=== PATIENT | male | born 1975 | race Caucasian/White ===

== ENCOUNTER 2016-08-08 12:10 | Inpatient (IN) | payer MEDICARE, OTHER ==
[~2016-08-08] VITALS: Ht 190.5 cm; Wt 112.0 kg
[2016-08-08 13:33] LABS: BASO % 0.6 % (0.0-1.0); EOS # 0.1 K/mm3 (0.0-0.50); EOS % 1.5 % (0.0-3.0); LARGE UNSTAINED CELL # 0.2 K/mm3 (0.0-0.4); LARGE UNSTAINED CELL % 1.6 % (0.0-4.0); LYMPH # 2.1 K/mm3 (1.5-4.5); LYMPH % 22.1 % (24.0-44.0); MEAN CORPUSCULAR HEMOGLOBIN 28.5 pg (27.0-33.0); MEAN CORPUSCULAR HGB CONC 32.7 g/dl (32.0-36.5); MONO # 0.4 K/mm3 (0.0-0.8); MONO % 3.7 % (0.0-5.0); NEUTROPHILS # 6.6 K/mm3 (1.8-7.7); NEUTROPHILS % 70.5 % (36.0-66.0); PLATELET COUNT, AUTOMATED 347 k/mm3 (150-450); RED CELL DISTRIBUTION WIDTH 13.2 % (11.5-14.5); WHITE BLOOD COUNT 9.3 K/mm3 (4.0-10.0)
[2016-08-08 13:42] LABS: ANION GAP 8 MEQ/L (8-16); BLOOD UREA NITROGEN 12 MG/DL (7-18); CALCIUM LEVEL 9.1 MG/DL (8.5-10.1); CARBON DIOXIDE LEVEL 31 MEQ/L (21-32); CHLORIDE LEVEL 104 MEQ/L (98-107); CREATININE FOR GFR 0.82 MG/DL (0.70-1.30); GLOMERULAR FILTRATION RATE > 60.0 (>60); GLUCOSE, FASTING 84 MG/DL (70-105); POTASSIUM SERUM 3.7 MEQ/L (3.5-5.1); SODIUM LEVEL 143 MEQ/L (136-145)
--- NOTE | 2016-08-08 14:17 | REP ---
Left lower extremity deep vein duplex ultrasound: The deep veins demonstrate normal compression, normal Doppler color flow and normal Doppler waveforms with respiration and augmentation at multiple levels from the popliteal vein to the common femoral vein. Impression: There is no deep vein thrombus. A normal-sized left inguinal node is incidentally identified. Signed by Jan Serrato MD 08/08/2016 02:09 P
--- NOTE | 2016-08-08 14:22 | REP ---
Left upper extremity duplex venous ultrasound: History: Intravenous medication for Lyme disease PICC line inserted. Deformity and swelling. Findings: The left internal jugular, left subclavian, left brachial, left basilic, left axillary, and left cephalic veins are anechoic and compressible where they can be sonographically visualized. There is a bandage at the PICC line insertion in the distal arm. There is no evidence of venous thrombosis. Color flow imaging is homogeneous. Spectral Doppler interrogation is unremarkable. Impression: No evidence of left upper extremity venous thrombosis. The PICC line is seen in the basilic vein without visible thrombus. Signed by Ellis Fallon MD 08/08/2016 04:33 P
--- NOTE | 2016-08-08 14:28 | REP ---
Chest x-ray: Two views. History: Syncope. . Comparison study: No comparison study . Findings: The lungs are well inflated and free of infiltrate. The pleural angles are sharp. The heart size is normal. Pulmonary vasculature is not increased. No significant bony abnormality is seen. Impression: Negative chest x-ray. Signed by Ellis Fallon MD 08/08/2016 02:20 P
[2016-08-08] MEDS ORDERED: oxyCODONE 5MG TAB As Ordered ONE (14:35)
[2016-08-08] MEDS ORDERED: ISOVUE-370 76% 100ML VIAL (Q9967) As Ordered ONE (14:54)
--- NOTE | 2016-08-08 15:47 | REP ---
CT pulmonary angiogram: With IV contrast. History: Chest pain. Comparison studies: Today's chest x-ray. Contrast dose: 75 cc's of Isovue [address] technique: Helical scanning is acquired and overlapping 1.5 mm and contiguous 3 mm axial images are reformatted. In addition, a 3-D work station is deployed to generate thick slab maximum intensity projection images in sagittal and coronal imaging projections. CT pulmonary angiographic findings: There is good opacification of the pulmonary arterial tree. There is a thin weblike or membrane like filling defect in the right lower lobe pulmonary artery branch which extends into the segmental pulmonary artery branch posterior basal segment. This weblike defect is slightly eccentric. It may be subacute or old. It cannot be visualized on the maximal intensity projection images probably due to volume averaging. The thoracic aorta has a normal appearance. There is no evidence of pleural or pericardial effusion. No mass or infiltrate is seen in the lung belle. A left-sided PICC line is seen looping back upon itself and terminating in the left subclavian vein. This is a change in its position from when it was inserted April 11, 2016. Surgical clips are noted in the upper abdomen post gastric bypass. The upper abdominal structures are otherwise unremarkable. No other pulmonary arterial filling defect is appreciated. Impression: There is a thin membrane like filling defect in the right lower lobe pulmonary artery consistent with a very small acute pulmonary embolus versus subacute or chronic pulmonary embolus. A left-sided PICC line is seen doubling back upon itself and terminating in the left subclavian vein. Signed by Ellis Fallon MD 08/08/2016 04:34 P
[2016-08-08 16:03] LABS: INR 1.05
[2016-08-08] MEDS ORDERED: VITMTA PO (16:40)
[2016-08-08] MEDS ORDERED: OXYC1TAB23 PO (16:40)
[2016-08-08] MEDS ORDERED: POTA10CA PO (16:40)
[2016-08-08] MEDS ORDERED: GABA300C3 PO (16:40)
[2016-08-08] MEDS ORDERED: IRON65TA PO (16:40)
[2016-08-08] MEDS ORDERED: FURO40TA2 PO (16:40)
[2016-08-08] MEDS ORDERED: OXYC15TA76 PO (16:40)
[2016-08-08] MEDS ORDERED: CLON1TAB PO (16:40)
[2016-08-08] MEDS ORDERED: VITA-121 PO (16:40)
[2016-08-08] MEDS ORDERED: ONDANSETRON 4MG/2ML VIAL (J2405) IV PRN (17:00)
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
[2016-08-08] MEDS ORDERED: ENOXAPARIN 120 MG/0.8 ML SYR (J1650) SC SCH (18:00)
--- NOTE | 2016-08-08 19:05 | EDDOCDS ---
Physician Documentation [facility] Name: Delbert Suárez Age: 40 yrs Sex: Male : 1975 Arrival Date: 08/08/2016 Time: 12:10 Bed 6 Private MD: NO PRIMARY PHYSICIAN, . Disposition: 08/08/16 16:01 Hospitalization ordered by Alfredo Arthur for Inpatient Admission. Preliminary diagnosis are Pulmonary embolism, Syncope and collapse. - Bed requested for PCU. - Status is Inpatient Admission. [id number] - Condition is Stable. - Problem is new. - Symptoms are unchanged. Historical: - Allergies: No known drug Allergies; - Home Meds: 1. gabapentin 300 mg Oral tab three times a day 2. clonazepam 1 mg Oral TbDL QID 3. oxycodone 15 mg Oral tab 1 tab every 6 hours 4. Percocet 5-325 mg Oral tab 1 tab every 6 hours 5. Lasix 40 mg Oral tab 1 tab once daily 6. potassium chloride 10 mEq Oral cpER 1 cap once daily - PMHx: Lyme Disease; Pseudo Seizures; Fluid retention; left achilles tendon tear; PE; DVT; - PSHx: PICC line x3; right hand; Gastric Bypass; esophageal resection; YOSEF knee scopes; - Social history: Smoking status: Patient states former smoker of tobacco. No barriers to communication noted, The patient speaks fluent Croatian, Speaks appropriately for age. - Family history: Not pertinent. - : The pt / caregiver states he / she is not on anticoagulants. Home medication list is obtained from the patient, family members. - Exposure Risk Screening:: None identified. Vital Signs: 08/08 12:13 BP 146 / 75; Pulse 102; Resp 20; Temp 98.6(TE); Pulse Ox 100% on R/A; Weight 109.68 kg dem1 / 241.8 lbs (M); 12:46 BP 109 / 60 RA Supine (auto/); Pulse 76; jo3 12:49 BP 121 / 71 RA Sitting (auto/); Pulse 94; jo3 12:51 BP 123 / 66 RA Standing (auto/); Pulse 107; jo3 14:29 BP 110 / 58 (auto/); jo3 14:29 Pulse 80 MON; jo3 14:33 BP 116 / 61 (auto/); jo3 14:33 Pulse 86 MON; Pulse Ox 98% ; jo3 15:03 BP 111 / 57 (auto/); jo3 15:03 Pulse 82 MON; jo3 15:33 BP 106 / 55 (auto/); jo3 15:33 Pulse 82 MON; Pulse Ox 95% ; jo3 16:03 BP 109 / 61 (auto/); jo3 16:03 Pulse 76 MON; Pulse Ox 94% ; jo3 16:30 Pulse 78 MON; Pulse Ox 96% ; jo3 16:33 BP 106 / 61 (auto/); jo3 16:33 Pulse 76 MON; Pulse Ox 97% ; jo3 16:45 Pulse 72 MON; Pulse Ox 97% ; jo3 17:00 Pulse 74 MON; Pulse Ox 97% ; jo3 17:03 BP 112 / 64 (auto/); jo3 17:03 Pulse 72 MON; Resp 16; Temp 98.2(TE); Pulse Ox 97% ; js13 17:15 Pulse 74 MON; Pulse Ox 95% ; jo3 17:30 Pulse 82 MON; Pulse Ox 95% ; jo3 17:45 Pulse 76 MON; Pulse Ox 96% ; jo3 18:00 Pulse 78 MON; Pulse Ox 95% ; jo3 18:15 Pulse 76 MON; Pulse Ox 96% ; jo3 18:42 BP 115 / 65 (auto/); js13 18:42 Pulse 76 MON; Resp 16; Temp 97.9(TE); Pulse Ox 96% ; js13 MDM: 12:22 ECG WITH READING ER PHYS+CARDIAG ordered. EDMS 12:41 Dealer Sales Manager/Pulse Ox/q 30 min VS ordered. br1 12:41 IV Saline Lock ordered. br1 12:41 Rhythm Strip to chart ordered. br1 12:41 Undress patient appropriately for examination ordered. br1 12:41 Orthostatic VS ordered. br1 12:42 Basic Metabolic Profile Ordered. EDMS 12:42 CBC with Diff Ordered. EDMS 12:42 Cardiac Injury Profile Ordered. EDMS 12:42 Troponin Ordered. EDMS 12:43 Chest, 2 View (pa\E\lat) Ordered. EDMS 13:14 Ultrasound LE Unilateral R/O DVT Ordered. EDMS 13:14 DVT US Upper Ordered. EDMS 13:23 Financial registration complete. lg 13:34 NS 0.9% 1000 ml IV at 150 mL/hr continuous ordered. br1 13:44 [facility] [place] Payment Agreement was scanned into [employer] and attached to record. lg 14:34 oxyCODONE 15 mg PO once ordered. br1 14:44 CBC with Diff Reviewed. br1 14:44 Basic Metabolic Profile Reviewed. br1 14:44 Cardiac Injury Profile Reviewed. br1 14:44 Troponin Reviewed. br1 14:48 CT Chest Angio R/O PE Ordered. EDMS 15:43 BED REQUEST+ADM ordered. EDMS 15:47 PT/INR Ordered. EDMS 15:47 PTT Ordered. EDMS 17:01 CARDIAC INJURY PROFILE Ordered. EDMS 17:01 TROPONIN Ordered. EDMS 17:02 PHYSICAL THERAPY EVAL & TREAT ordered. EDMS 17:03 Admission / Observation Status ordered. EDMS 17:03 ECHOCARD,DOPPLER/COLOR FLOW ordered. EDMS 17:03 2 GRAM SODIUM DIET ordered. EDMS Administered Medications: 14:20 Drug: NS 0.9% 1000 ml [sodium chloride 0.9 % intravenous solution] Route: IV; Rate: 150 jo3 mL/hr; Site: right antecubital; 18:53 Follow up: IV Status: Completed infusion jo3 14:38 Drug: oxyCODONE 15 mg [oxycodone 5 mg tablet (3 tabs)] Route: PO; jo3 Signatures: Dispatcher [employer] EDMyra Almendarez, Reg Reg lg Ashtyn Vang,DOV RN jo3 Osmar Lr MD MD br1 Ashtyn Briscoe,DOV RN js13 Adriana Alvarado, RN RN sls2 The chart was reviewed and I authenticate all verbal orders and agree with the evaluation and treatment provided.Attachments: 13:44 [facility] [place] Payment Agreement lg [email or web address]
--- NOTE | 2016-08-08 19:05 | EDDOCDS ---
Nurse's Notes [facility] Name: Delbert Suárez Age: 40 yrs Sex: Male : 1975 Arrival Date: 08/08/2016 Time: 12:10 Bed 6 Private MD: NO PRIMARY PHYSICIAN, . Diagnosis: Pulmonary embolism;Syncope and collapse Presentation: 08/08 12:15 Red Flag criteria, patient assessed and taken directly to a bed. dsf 12:21 Presenting complaint: states: Pt has had ongoing difficulties r/t Lyme disease. jo3 Has a PICC line placed for Rocephin infusions. Completed Rocephin treatments Friday. Been unable to get ahold of Dr Reason to plan to have PICC removed. Has had nothing through PICC line since Friday and left hand is hurting and has numb feeling. Has history of blood clots. En route to hospital, pt had several syncopal episodes and complained of a "flutter" in chest. Adult Sepsis Screening: Patient has new or worsening altered mentation (1 point). Patient's respiratory rate is less than 22. Systolic blood pressure is greater than 100. Patient has a qSOFA score of 0- Negative Sepsis Screen. Suicide/Homicide risk assessment- the patient denies having any suicidal and/or homicidal ideations and does not present with any other emotional, behavioral or mental health complaints. Status: Patient is not a environmental services supervisor or dependent. Transition of care: patient was not received from another setting of care. 12:21 Acuity: LUISITO Level 3 jo3 12:21 Method Of Arrival: Walkin/Carried/Asstd jo3 Triage Assessment: 12:42 General: Appears. General: See nursing assessment . HIV screening NA for this visit jo3 Offered previously. Neurological:. Historical: - Allergies: No known drug Allergies; - Home Meds: 1. gabapentin 300 mg Oral tab three times a day 2. clonazepam 1 mg Oral TbDL QID 3. oxycodone 15 mg Oral tab 1 tab every 6 hours 4. Percocet 5-325 mg Oral tab 1 tab every 6 hours 5. Lasix 40 mg Oral tab 1 tab once daily 6. potassium chloride 10 mEq Oral cpER 1 cap once daily - PMHx: Lyme Disease; Pseudo Seizures; Fluid retention; left achilles tendon tear; PE; DVT; - PSHx: PICC line x3; right hand; Gastric Bypass; esophageal resection; YOSEF knee scopes; - Social history: Smoking status: Patient states former smoker of tobacco. No barriers to communication noted, The patient speaks fluent Slovenian, Speaks appropriately for age. - Family history: Not pertinent. - : The pt / caregiver states he / she is not on anticoagulants. Home medication list is obtained from the patient, family members. - Exposure Risk Screening:: None identified. Screenin:44 Screening information is obtained from the patient, family members. Screening jo3 information is obtained from. Fall risk: At risk due to apparent cognitive impairment. Assistance ADL's: requires no assistance with activities of daily living. Abuse/DV Screen: The patient / caregiver reports he/she is:. Nutritional screening: No deficits noted. Advance Directives: There is no active DNR order. home support is adequate. Assessment: 12:42 General: Appears. General: Appears in no apparent distress, comfortable, unkempt, jo3 Behavior is cooperative. General: Appears well nourished, Behavior is. Neurological: Level of Consciousness is awake, alert, Oriented to person, place, time. Cardiovascular: PICC line to left upper extremity . Rhythm is sinus rhythm No ectopy. Respiratory: Airway is patent Respiratory effort is even, unlabored. Derm: Skin is pink, warm & dry. 13:08 General: Appears in no apparent distress, comfortable, unkempt, well nourished, jo3 Behavior is appropriate for age, cooperative. Neurological: Level of Consciousness is awake, alert, Oriented to person, place, time, Proofer Prepress are equal bilaterally. Respiratory: Airway is patent Respiratory effort is even, unlabored. Derm: Skin is pink, warm & dry. Musculoskeletal: Left foot in immobilizer boot to mid calf. 14:38 General: Appears uncomfortable, Behavior is appropriate for age, cooperative, pleasant. jo3 General: Pt reports it is past time for home dose of pain medication. Discussed with Dr Lr and orders received. Will monitor for effectiveness . Neurological: Level of Consciousness is awake, alert, Oriented to person, place, time. 15:32 Reassessment: Patient appears in no apparent distress at this time. Patient states jo3 feeling better. Patient states symptoms have improved. Pt reports that pain is improved following home dose of Oxycodone. returned from CT scan. Tolerated well. Awaiting results for disposition at this time. Aware of plan of care . 16:35 General: Appears in no apparent distress, Behavior is appropriate for age, cooperative, jo3 pleasant. General: Awaiting admission at this time. Aware of plan of care . Neurological: No deficits noted. Level of Consciousness is awake, alert, Oriented to person, place, time. Respiratory: Airway is patent Respiratory effort is even, unlabored. Derm: Skin is pink, warm & dry. 17:40 Reassessment: Patient appears in no apparent distress at this time. Resting on jo3 stretcher with significant other at bedside. Awaiting admission to PCU at this time. Aware of plan of care . Neurological: No deficits noted. Level of Consciousness is awake, alert, Oriented to person, place, time. Respiratory: No deficits noted. Airway is patent Respiratory effort is even, unlabored. 18:39 General: Appears in no apparent distress, comfortable, Behavior is appropriate for age, jo3 cooperative, pleasant. Neurological: Level of Consciousness is awake, alert, Oriented to person, place, time. Respiratory: Airway is patent Respiratory effort is even, unlabored. Derm: Skin is pink, warm & dry. Vital Signs: 12:13 BP 146 / 75; Pulse 102; Resp 20; Temp 98.6(TE); Pulse Ox 100% on R/A; Weight 109.68 kg dem1 (M); 12:46 BP 109 / 60 RA Supine (auto/); Pulse 76; jo3 12:49 BP 121 / 71 RA Sitting (auto/); Pulse 94; jo3 12:51 BP 123 / 66 RA Standing (auto/); Pulse 107; jo3 14:29 BP 110 / 58 (auto/); jo3 14:29 Pulse 80 MON; jo3 14:33 BP 116 / 61 (auto/); jo3 14:33 Pulse 86 MON; Pulse Ox 98% ; jo3 15:03 BP 111 / 57 (auto/); jo3 15:03 Pulse 82 MON; jo3 15:33 BP 106 / 55 (auto/); jo3 15:33 Pulse 82 MON; Pulse Ox 95% ; jo3 16:03 BP 109 / 61 (auto/); jo3 16:03 Pulse 76 MON; Pulse Ox 94% ; jo3 16:30 Pulse 78 MON; Pulse Ox 96% ; jo3 16:33 BP 106 / 61 (auto/); jo3 16:33 Pulse 76 MON; Pulse Ox 97% ; jo3 16:45 Pulse 72 MON; Pulse Ox 97% ; jo3 17:00 Pulse 74 MON; Pulse Ox 97% ; jo3 17:03 BP 112 / 64 (auto/); jo3 17:03 Pulse 72 MON; Resp 16; Temp 98.2(TE); Pulse Ox 97% ; js13 17:15 Pulse 74 MON; Pulse Ox 95% ; jo3 17:30 Pulse 82 MON; Pulse Ox 95% ; jo3 17:45 Pulse 76 MON; Pulse Ox 96% ; jo3 18:00 Pulse 78 MON; Pulse Ox 95% ; jo3 18:15 Pulse 76 MON; Pulse Ox 96% ; jo3 18:42 BP 115 / 65 (auto/); js13 18:42 Pulse 76 MON; Resp 16; Temp 97.9(TE); Pulse Ox 96% ; js13 Vitals: 12:13 Log In Time: August 08, 2016 at 12:11. elp 12:13 RN notified that patient meets Red Flag criteria. elp ED Course: 12:12 Patient visited by Liliane Lopez PCA. elp 12:12 NO PRIMARY PHYSICIAN, . is Private Physician. elp 12:12 Patient moved to Waiting elp 12:13 Patient visited by Liliane Lopez PCA. elp 12:15 Patient moved to 6 elp 12:26 EKG done. (by ED staff). Reviewed by Osmar Lr MD. dem1 12:27 Triage Initiated jo3 12:28 Patient visited by Jessica Whitley. dem1 12:28 Pt greeted and oriented to ED. Patient advised of names of staff involved in care, dem1 location of call loredo, wait times and NPO status. Patient has correct armband on for positive identification. Placed in gown. Bed in low position. Call light in reach. Side rails up X2. monitoring manager on. Pulse ox on. NIBP on. 12:31 Patient visited by Jessica Whitley. dem1 12:31 Seizure precautions initiated. dem1 12:33 Patient visited by Ashtyn Vang,DOV. jo3 12:44 The patient / caregiver is instructed regarding the plan of care and ED course. jo3 12:59 Osmar Lr MD is Attending Physician. br1 13:08 Basic Metabolic Profile Sent. jo3 13:08 CBC with Diff Sent. jo3 13:08 Cardiac Injury Profile Sent. jo3 13:08 Troponin Sent. jo3 13:10 Flushed left PICC line. jo3 13:12 Patient visited by Osmar Lr MD. br1 13:14 Patient visited by Ashtyn Vang,DOV. jo3 13:44 [facility] Payment Agreement was scanned into [employer] and attached to record. lg 14:18 Patient visited by Angelita Preciado PCA. ct3 14:55 Ultrasound LE Unilateral R/O DVT Returned. EDMS 14:55 DVT US Upper Returned. EDMS 14:55 Chest, 2 View (pa\\E\\lat) Returned. EDMS 15:35 Patient visited by Angelita Preciado PCA. ct3 15:38 Patient visited by Ashtyn Vang,DOV. jo3 16:01 Alfredo Arthur is Hospitalizing Provider. br1 16:36 CT Chest Angio R/O PE Returned. EDMS 17:15 Patient visited by Ashtyn Vang,DOV. jo3 18:17 No procedures done that require assistance. jo3 18:18 Patient visited by Ashtyn Vang,ODV. jo3 Administered Medications: 14:20 Drug: NS 0.9% 1000 ml [sodium chloride 0.9 % intravenous solution] Route: IV; Rate: 150 jo3 mL/hr; Site: right antecubital; 18:53 Follow up: IV Status: Completed infusion jo3 14:38 Drug: oxyCODONE 15 mg [oxycodone 5 mg tablet (3 tabs)] Route: PO; jo3 Order Results: Lab Order: Basic Metabolic Profile; SPEC'M 08/08/16 13:06 Test: GLUCOSE, FASTING; Value: 84; Range: 70-105; Units: MG/DL; Status: F Test: BLOOD UREA NITROGEN; Value: 12; Range: 7-18; Units: MG/DL; Status: F Test: CREATININE FOR GFR; Value: 0.82; Range: 0.70-1.30; Units: MG/DL; Status: F Test: GLOMERULAR FILTRATION RATE; Value: > 60.0; Range: >60; Status: F Test: SODIUM LEVEL; Value: 143; Range: 136-145; Units: MEQ/L; Status: F Test: POTASSIUM SERUM; Value: 3.7; Range: 3.5-5.1; Units: MEQ/L; Status: F Test: CHLORIDE LEVEL; Value: 104; Range: 98-107; Units: MEQ/L; Status: F Test: CARBON DIOXIDE LEVEL; Value: 31; Range: 21-32; Units: MEQ/L; Status: F Test: ANION GAP; Value: 8; Range: 8-16; Units: MEQ/L; Status: F Test: CALCIUM LEVEL; Value: 9.1; Range: 8.5-10.1; Units: MG/DL; Status: F Test Note: ; Units are mL/min/1.73 m2 Chronic Kidney Disease Staging per NKF: Stage I & II GFR >=60 Normal to Mildly Decreased Stage III GFR 30-59 Moderately Decreased Stage IV GFR 15-29 Severely Decreased Stage V GFR <15 Very Little GFR Left ESRD GFR <15 on [employer] Lab Order: CBC with Diff; SPEC'M 08/08/16 13:06 Test: WHITE BLOOD COUNT; Value: 9.3; Range: 4.0-10.0; Units: K/mm3; Status: F Test: RED BLOOD COUNT; Value: 5.11; Range: 4.30-6.10; Units: M/mm3; Status: F Test: HEMOGLOBIN; Value: 14.5; Range: 14.0-18.0; Units: g/dl; Status: F Test: HEMATOCRIT; Value: 44.4; Range: 42.0-52.0; Units: %; Status: F Test: MEAN CORPUSCULAR VOLUME; Value: 87.0; Range: 80.0-96.0; Units: fl; Status: F Test: MEAN CORPUSCULAR HEMOGLOBIN; Value: 28.5; Range: 27.0-33.0; Units: pg; Status: F Test: MEAN CORPUSCULAR HGB CONC; Value: 32.7; Range: 32.0-36.5; Units: g/dl; Status: F Test: RED CELL DISTRIBUTION WIDTH; Value: 13.2; Range: 11.5-14.5; Units: %; Status: F Test: PLATELET COUNT, AUTOMATED; Value: 347; Range: 150-450; Units: k/mm3; Status: F Test: NEUTROPHILS %; Value: 70.5; Range: 36.0-66.0; Abnormal: Above high normal; Units: %; Status: F Test: LYMPH %; Value: 22.1; Range: 24.0-44.0; Abnormal: Below low normal; Units: %; Status: F Test: MONO %; Value: 3.7; Range: 0.0-5.0; Units: %; Status: F Test: EOS %; Value: 1.5; Range: 0.0-3.0; Units: %; Status: F Test: BASO %; Value: 0.6; Range: 0.0-1.0; Units: %; Status: F Test: LARGE UNSTAINED CELL %; Value: 1.6; Range: 0.0-4.0; Units: %; Status: F Test: NEUTROPHILS #; Value: 6.6; Range: 1.8-7.7; Units: K/mm3; Status: F Test: LYMPH #; Value: 2.1; Range: 1.5-4.5; Units: K/mm3; Status: F Test: MONO #; Value: 0.4; Range: 0.0-0.8; Units: K/mm3; Status: F Test: EOS #; Value: 0.1; Range: 0.0-0.50; Units: K/mm3; Status: F Test: BASO #; Value: 0.0; Range: 0.0-0.2; Units: K/mm3; Status: F Test: LARGE UNSTAINED CELL #; Value: 0.2; Range: 0.0-0.4; Units: K/mm3; Status: F Lab Order: Cardiac Injury Profile; SPEC'M 08/08/16 13:06 Test: CPK CREATINE PHOSPHOKINASE; Value: 79; Range: 39-308; Units: U/L; Status: F Test: CK-MB VALUE MASS; Value: 1.0; Range: 0.0-3.6; Units: NG/ML; Status: F Test: MB/CK RELATIVE INDEX; Value: 1.26; Range: < OR =4; Status: F Test Note: ; DIAGNOSIS CRITERIA MMB ng/ml Relative Index (RI) NON-AMI < or = 5 N/A LOUIE ZONE > 5 < or = 4 AMI > 5 > 4 Lab Order: Troponin; [facility] 08/08/16 13:06 Test: TROPONIN I; Value: < 0.02; Range: < 0.10; Units: NG/ML; Status: F Test Note: ; Troponin I Reference Interval for [email or web address] LOCI: 99th Percentile= 0.00-0.045 ng/ml Risk Stratification: <= 0.10 ng/ml Decreased Risk for Adverse Clinical Events. 0.10-1.50 ng/ml Increased Risk for Adverse Clinical Events. Evaluation of additional criterion and/or repeat testing in 2-6 hours is suggested to rule out myocardial damage. >= 1.50 ng/ml Indicative of Myocardial Injury. Lab Order: PT/INR; [facility] 08/08/16 13:06 Test: PROTHROMBIN TIME; Value: 13.8; Range: 12.3-14.5; Units: SECONDS; Status: F Test: INR; Value: 1.05; Status: F Test Note: ; THERAPUTIC HUMAN INR VALUES INDICATIONS NORMAL RANGES PROPHYLAXIS/TREATMENT OF: VENOUS THROMBOSIS 2.0-3.0 PULMONARY EMBOLISM 2.0-3.0 PREVENTION OF SYSTEMIC EMBOLISM FROM: TISSUE HEART VALVES 2.0-3.0 ACUTE MYOCARDIAL INFARCTION 2.0-3.0 VALVULAR HEART DISEASE 2.0-3.0 ATRIAL FIBRILLATION 2.0-3.0 MECHANICAL VALVES(HIGH RISK) 2.5-3.5 RECURRENT MYOCARDIAL INFARCTION 2.5-3.5 Lab Order: PTT; [facility] 08/08/16 13:06 Test: PARTIAL THROMBOPLASTIN TIME; Value: 30.1; Range: 26.6-37.1; Units: SECONDS; Status: F Lab Order: CARDIAC INJURY PROFILE; [facility] 08/08/16 17:20 Test: CPK CREATINE PHOSPHOKINASE; Value: 65; Range: 39-308; Units: U/L; Status: F Test: CK-MB VALUE MASS; Value: 1.1; Range: 0.0-3.6; Units: NG/ML; Status: F Test: MB/CK RELATIVE INDEX; Value: 1.69; Range: < OR =4; Status: F Test Note: ; DIAGNOSIS CRITERIA MMB ng/ml Relative Index (RI) NON-AMI < or = 5 N/A LOUIE ZONE > 5 < or = 4 AMI > 5 > 4 Lab Order: TROPONIN; JERRY[facility]Mayuri 08/08/16 17:20 Test: TROPONIN I; Value: < 0.02; Range: < 0.10; Units: NG/ML; Status: F Test Note: ; Troponin I Reference Interval for [employer] LOCI: 99th Percentile= 0.00-0.045 ng/ml Risk Stratification: <= 0.10 ng/ml Decreased Risk for Adverse Clinical Events. 0.10-1.50 ng/ml Increased Risk for Adverse Clinical Events. Evaluation of additional criterion and/or repeat testing in 2-6 hours is suggested to rule out myocardial damage. >= 1.50 ng/ml Indicative of Myocardial Injury. Radiology Order: Chest, 2 View (pa\\E\\lat) Test: Chest, 2 View (pa\\E\\lat) REASON FOR EXAMINATION: Syncope; Chest x-ray: Two views.; ; History: Syncope. .; ; Comparison study: No comparison study .; ; Findings: The lungs are well inflated and free of infiltrate. The pleural; angles are sharp. The heart size is normal. Pulmonary vasculature is not; increased. No significant bony abnormality is seen.; ; Impression:; ; Negative chest x-ray.; ; ; Signed by; Ellis Fallon MD 08/08/2016 02:20 P; Radiology Order: Ultrasound LE Unilateral R/O DVT Test: Ultrasound LE Unilateral R/O DVT REASON FOR EXAMINATION: Deformity/Swelling; Left lower extremity deep vein duplex ultrasound:; ; The deep veins demonstrate normal compression, normal Doppler color flow and; normal Doppler waveforms with respiration and augmentation at multiple levels; from the popliteal vein to the common femoral vein.; ; Impression:; ; There is no deep vein thrombus.; ; A normal-sized left inguinal node is incidentally identified.; ; ; Signed by; Jan Serrato MD 08/08/2016 02:09 P; Radiology Order: DVT US Upper Test: DVT US Upper REASON FOR EXAMINATION: Deformity/Swelling; Left upper extremity duplex venous ultrasound:; ; History: Intravenous medication for Lyme disease PICC line inserted. Deformity; and swelling.; ; Findings: The left internal jugular, left subclavian, left brachial, left; basilic, left axillary, and left cephalic veins are anechoic and compressible; where they can be sonographically visualized. There is a bandage at the PICC; line insertion in the distal arm. There is no evidence of venous thrombosis.; Color flow imaging is homogeneous. Spectral Doppler interrogation is; unremarkable.; ; Impression:; ; No evidence of left upper extremity venous thrombosis. The PICC line is seen in; the basilic vein without visible thrombus.; ; ; Signed by; Ellis Fallon MD 08/08/2016 04:33 P; Radiology Order: CT Chest Angio R/O PE Test: CT Chest Angio R/O PE REASON FOR EXAMINATION: Chest Pain; CT pulmonary angiogram: With IV contrast.; ; History: Chest pain.; ; Comparison studies: Today's chest x-ray.; ; Contrast dose: 75 cc's of Isovue 370 are administered intravenously.; ; CT technique: Helical scanning is acquired and overlapping 1.5 mm and contiguous; 3 mm axial images are reformatted. In addition, a 3-D work station is deployed; to generate thick slab maximum intensity projection images in sagittal and; coronal imaging projections.; ; CT pulmonary angiographic findings: There is good opacification of the pulmonary; arterial tree. There is a thin weblike or membrane like filling defect in the; right lower lobe pulmonary artery branch which extends into the segmental; pulmonary artery branch posterior basal segment. This weblike defect is slightly; eccentric. It may be subacute or old. It cannot be visualized on the maximal; intensity projection images probably due to volume averaging.; ; The thoracic aorta has a normal appearance.; ; There is no evidence of pleural or pericardial effusion. No mass or infiltrate; is seen in the lung belle. A left-sided PICC line is seen looping back upon; itself and terminating in the left subclavian vein. This is a change in its; position from when it was inserted April 11, 2016. Surgical clips are noted in; the upper abdomen post gastric bypass. The upper abdominal structures are; otherwise unremarkable. No other pulmonary arterial filling defect is; appreciated.; ; Impression:; ; There is a thin membrane like filling defect in the right lower lobe pulmonary; artery consistent with a very small acute pulmonary embolus versus subacute or; chronic pulmonary embolus. A left-sided PICC line is seen doubling back upon; itself and terminating in the left subclavian vein.; ; ; Signed by; Ellis Fallon MD 08/08/2016 04:34 P; Outcome: 16:01 Decision to Hospitalize by Provider. br1 18:39 Discharge Assessment: Patient awake, alert and oriented x 3. No cognitive and/or jo3 functional deficits noted. Patient verbalized understanding of disposition instructions. patient administered narcotics - yes. Patient was admitted to the hospital or transferred to another facility. The following High Risk Discharge criteria are identified: None. Admitted to PCU accompanied by nurse, accompanied by tech, family with patient, via stretcher, on monitor, with chart. Condition: stable. CT Study completed. Ultrasound Study completed. Admission hand-off: Report Faxed Fax receipt verified by Tracy Rodriguez RN. Stated ready to receive pt at 1850. Property :Personal belongings accompany Pt. 19:05 Patient left the ED. js13 Signatures: Dispatcher [employer] EDMyra Almendarez, Reg Reg Ashtyn Pollard,RN RN jo3 Osmar Lr MD MD br1 Angelita Preciado, MACHINE STEMMER MACHINE STEMMER ct3 Tanvi Ignacio,RN RN Jessica Virgen dem1 Ashtyn Briscoe,RN RN js13 Liliane Lopez, MACHINE STEMMER MACHINE STEMMER elp Corrections: (The following items were deleted from the chart) 12:27 12:13 BP 146 / 75; Pulse 102bpm; Resp 20bpm; Pulse Ox 100% RA; elp dem1 12:44 12:42 Cardiovascular: Rhythm is sinus rhythm No ectopy. jo3 jo3 19:04 17:03 Pulse 72bpm; MonitorResp 16bpm; Pulse Ox 97%; Temp 68.2F Temporal; jo3 js13 MTDD
[2016-08-08 19:10] VITALS: BP 127/60
[2016-08-08] MEDS ORDERED: SLF 3 ML SYR IV PRN (20:00)
[2016-08-08] MEDS: PERCOCET 5MG/325MG TAB PO PRN (20:05)
[2016-08-08 20:28] VITALS: BP 114/55
[2016-08-08] MEDS: ENOXAPARIN 120 MG/0.8 ML SYR (J1650) SC SCH (21:55)
[2016-08-08] MEDS: GABAPENTIN 300 MG CAP PO SCH (21:56)
[2016-08-08] MEDS: SLF 3 ML SYR IV SCH (21:56)
[2016-08-08] MEDS: clonazePAM 1 MG TAB PO SCH (21:56)
[2016-08-08 23:58] VITALS: BP 103/51
[2016-08-09] MEDS: SLF 3 ML SYR IV SCH ×3 (06:00→20:38)
[2016-08-09 06:06] LABS: INR 1.12
[2016-08-09 06:10] VITALS: BP 100/63
[2016-08-09] MEDS: oxyCODONE 5MG TAB PO SCH ×4 (06:14→17:48)
[2016-08-09 06:19] LABS: ALBUMIN 3.2 GM/DL (3.2-5.2); ALKALINE PHOSPHATASE 57 U/L (45-117); ALT/SGPT 34 U/L (12-78); ANION GAP 9 MEQ/L (8-16); AST/SGOT 24 U/L (15-37); BILIRUBIN,TOTAL 0.4 MG/DL (0.2-1.0); BLOOD UREA NITROGEN 11 MG/DL (7-18); CALCIUM LEVEL 8.7 MG/DL (8.5-10.1); CARBON DIOXIDE LEVEL 29 MEQ/L (21-32); CHLORIDE LEVEL 107 MEQ/L (98-107); CREATININE FOR GFR 0.77 MG/DL (0.70-1.30); GLOMERULAR FILTRATION RATE > 60.0 (>60); GLUCOSE, FASTING 90 MG/DL (70-105); MAGNESIUM LEVEL 1.9 MG/DL (1.8-2.4); POTASSIUM SERUM 3.6 MEQ/L (3.5-5.1); SODIUM LEVEL 145 MEQ/L (136-145); TOTAL PROTEIN 6.4 GM/DL (6.4-8.2)
[2016-08-09 08:00] VITALS: BP 131/71
[2016-08-09] MEDS: clonazePAM 1 MG TAB PO SCH ×4 (08:06→20:38)
[2016-08-09] MEDS: GABAPENTIN 300 MG CAP PO SCH ×3 (08:06→20:38)
[2016-08-09] MEDS: ENOXAPARIN 120 MG/0.8 ML SYR (J1650) SC SCH ×2 (08:07→20:38)
[2016-08-09] MEDS: PERCOCET 5MG/325MG TAB PO PRN ×3 (08:08→20:39)
--- NOTE | 2016-08-09 08:34 | IPNPDOC ---
Subjective General Date Seen The patient was seen on 08/09/16. Subjective Chief Complaint/HPI The patient is a 40-year-old male admitted with a reason for visit of Syncope, Atypical Chest Pain,Pe(Pulmonary Thromboem. General: Denies: Chills, Fatigue, Malaise, Night Sweats, Normal Appetite, Other Symptoms, ROS Unobtainable Constitutional: Denies: Chills, Fatigue, Fever, Lethargy, Malaise, Night Sweats , Other, Weakness, Weight Loss Eyes: Denies: Conjunctivae inflammation, Eyelid inflammation, Other, Pain, Redness, Vision change ENT: Denies: Dysphagia, Ear Pain, Epistaxis, Head Aches, Other Symptoms, Post Nasal Drip, Sinus Congestion, Sore Throat Skin: Denies: Breakdown, Bruising, Dry, Itching, Jaundice, Lesions, Nail Changes, Other, Rash Pulmonary: Denies: Cough, Dyspnea, Other Symptoms, Pleuritic Chest Pain Cardiovascular: Denies: Chest Pain, Edema, Lt Headedness, Orthopnea, Other Symptoms, Palpitations, Paroxysmal Noc. Dyspnea Gastrointestinal: Denies: Abdominal Pain, Constipation, Diarrhea, Hematochezia , Melena, Nausea, Other Symptoms, Vomiting Objective Physical Examination General Exam: Positive: Alert, Cooperative, No Acute Distress Eye Exam: Positive: Conjunctiva & lids normal, EOMI, PERRLA, Negative: Sclera icteric ENT Exam: Positive: Atraumatic Neck Exam: Positive: Supple Chest Exam: Positive: Clear to auscultation, Normal air movement Heart Exam: Positive: Rate Normal, Regular Rhythm Telemetry: Positive: No significant arrhythmia Abdomen Exam: Positive: Normal bowel sounds, Soft, Negative: Tenderness Male Exam: Negative: Edema Psych Exam: Positive: Oriented x 3 Assessment /Plan Problems Problems: (1) PE (pulmonary thromboembolism) Status: Acute Response to Treatment: Stable Discussed With: Patient Problem Specific Plan: Monitor Clinically, Repeat Tests (2) Atypical chest pain Status: Resolved Discussed With: Patient Problem Specific Plan: Monitor Clinically, Repeat Tests (3) Lyme disease Status: Chronic Response to Treatment: Stable Discussed With: Patient Problem Specific Plan: Monitor Clinically Plan/VTE VTE Prophylaxis Ordered?: Yes Plan Diet: Continue Current Activity: Continue Current Diagnostics: Repeat Labs in AM, Ultrasound, TTE Anticipated Discharge: Home VS, I&O, 24H, Fishbone Vital Signs/I&O Vital Signs Date Time Temp Pulse Resp B/P Pulse Ox O2 Delivery O2 Flow Rate FiO2 08/09/16 08:08 18 08/09/16 08:00 96.9 68 131/71 99 Room Air I&O- Last 24 Hours up to 6 AM 08/09/16 06:00 Intake Total 720 ml Output Total 575 ml Balance 145 ml Laboratory Data 24H LABS Laboratory Tests 2 08/08/16 13:06: Activated Partial Thromboplast Time 30.1, Anion Gap 8, White Blood Count 9.3, Red Blood Count 5.11, Hemoglobin 14.5, Hematocrit 44.4, Mean Corpuscular Volume 87.0, Mean Corpuscular Hemoglobin 28.5, Mean Corpuscular Hemoglobin Concent 32.7 , Red Cell Distribution Width 13.2, Platelet Count 347, Neutrophils (%) (Auto) 70.5H, Lymphocytes (%) (Auto) 22.1L, Monocytes (%) (Auto) 3.7, Eosinophils (%) ( Auto) 1.5, Basophils (%) (Auto) 0.6, Neutrophils # (Auto) 6.6, Lymphocytes # ( Auto) 2.1, Monocytes # (Auto) 0.4, Eosinophils # (Auto) 0.1, Basophils # (Auto) 0.0, Blood Urea Nitrogen 12, Creatinine 0.82, Sodium Level 143, Potassium Level 3.7, Chloride Level 104, Carbon Dioxide Level 31, Calcium Level 9.1, Total Creatine Kinase 79, Creatine Kinase MB 1.0, Creatine Kinase MB Relative Index 1.26, Glomerular Filtration Rate > 60.0, Large Unclassified Cells # 0.2, Large Unclassified Cells % 1.6, Prothromb Time International Ratio 1.05, Prothrombin Time 13.8, Troponin I < 0.02 08/08/16 17:20: Total Creatine Kinase 65, Creatine Kinase MB 1.1, Creatine Kinase MB Relative Index 1.69, Troponin I < 0.02 08/09/16 00:14: Total Creatine Kinase 67, Creatine Kinase MB 1.0, Creatine Kinase MB Relative Index 1.49, Troponin I < 0.02 08/09/16 05:41: Activated Partial Thromboplast Time 80.5H, Anion Gap 9, Blood Urea Nitrogen 11, Creatinine 0.77, Sodium Level 145, Potassium Level 3.6, Chloride Level 107, Carbon Dioxide Level 29, Calcium Level 8.7, Glomerular Filtration Rate > 60.0, Prothromb Time International Ratio 1.12, Prothrombin Time 14.5, Aspartate Amino Transf (AST/SGOT) 24, Alanine Aminotransferase (ALT/SGPT) 34, Alkaline Phosphatase 57, Total Bilirubin 0.4, Total Protein 6.4, Albumin 3.2, Albumin/ Globulin Ratio 1.00, Magnesium Level 1.9 CBC/BMP Laboratory Tests 08/08/16 13:06 Calcium Level 9.1, Total Creatine Kinase 79, Red Blood Count 5.11, Mean Corpuscular Volume 87.0, Mean Corpuscular Hemoglobin 28.5, Mean Corpuscular Hemoglobin Concent 32.7, Red Cell Distribution Width 13.2, Neutrophils (%) (Auto ) 70.5 H, Lymphocytes (%) (Auto) 22.1 L, Monocytes (%) (Auto) 3.7, Eosinophils ( %) (Auto) 1.5, Basophils (%) (Auto) 0.6, Neutrophils # (Auto) 6.6, Lymphocytes # (Auto) 2.1, Monocytes # (Auto) 0.4, Eosinophils # (Auto) 0.1, Basophils # ( Auto) 0.0 08/09/16 05:41 Calcium Level 8.7, Aspartate Amino Transf (AST/SGOT) 24, Alanine Aminotransferase (ALT/SGPT) 34, Alkaline Phosphatase 57, Total Bilirubin 0.4, Total Protein 6.4, Albumin 3.2 SIMONA HICKS MD Aug 09, 2016 08:34
[2016-08-09 12:00] VITALS: BP 110/53
--- NOTE | 2016-08-09 15:56 | REP ---
Duplex extremity venous ultrasound: Right lower extremity. History: History of previous DVT. Evaluate for new onset DVT. Findings: The deep veins are anechoic and fully compressible from the groin to the popliteal fossa in the right lower extremity. Color flow imaging is homogeneous. Spectral Doppler interrogation demonstrates intact respiratory variation in flow and normal manual augmentation of flow. There is no evidence of deep vein thrombosis. Impression: Negative right lower extremity duplex venous ultrasound. No evidence of deep vein thrombosis. Signed by Ellis Fallon MD 08/09/2016 03:47 P
--- NOTE | 2016-08-09 15:57 | REP ---
Bilateral upper extremity duplex venous ultrasound: History: History of previous right upper extremity venous thrombosis. Evaluate for new venous thrombosis. Findings: The right and left internal jugular, axillary, brachial, basilic, and cephalic veins are anechoic and compressible in the left upper extremity. Color flow imaging is homogeneous. Spectral Doppler interrogation is unremarkable. There is no evidence of right or left upper extremity venous thrombosis. Impression: Negative bilateral upper extremity duplex venous ultrasound. No evidence of venous thrombosis. Signed by Ellis Fallon MD 08/09/2016 03:48 P
[2016-08-09 16:00] VITALS: BP 116/58
--- NOTE | 2016-08-09 19:42 | ECHO ---
DATE OF PROCEDURE: 08/08/2016 REFERRING PHYSICIAN: Dr. Alfredo Arthur PATIENT LOCATION: Room 3225 REASON FOR ECHOCARDIOGRAM: Syncope. 2D MEASUREMENTS: IVS: 0.87 cm LV: 5.4 cm LVPW: 0.87 cm LA: 3.2 cm Aorta: 3.9 cm IVC: 2.1 cm ASCENDING AORTA: 3.3 cm DOPPLER MEASUREMENTS: Peak velocity across the aortic valve: 1.7 m/s Peak velocity across the LVOT: 0.77 m/s Mitral E: 0.76, Mitral A: 0.65, with a ratio of 1.2 2D COMMENTS: 1. Normal left ventricular size, and wall thickness and normal global left ventricular systolic function. The estimated global left ventricular systolic ejection fraction is 60% to 65%. 2. Normal left atrium. Normal right atrium and right ventricle. 3. The atrial septum appeared to be normal without evidence of defect or shunt. 4. Mildly enlarged aortic root. The ascending aorta appear to be normal in size. 5. No pericardial effusion. 6. Minimally calcified aortic valve, leaflet excursion appear to be normal but the valves seem to be bicuspid in nature and limited views. Normal mitral valve and tricuspid valve. The proximal pulmonary artery branches appear to be normal in size on limited views. 7. The inferior vena cava was mildly enlarged, central venous pressure might be elevated. DOPPLER: It detects some moderate eccentric aortic regurgitation, trace mitral regurgitation. Assessment of the left ventricular diastolic function appear to be normal. IMPRESSION: 1. Normal global left ventricular systolic and diastolic function. 2. Moderate eccentric aortic regurgitation with probably bicuspid aortic valve noted on limited views. No significant aortic stenosis detected. 3. The aortic root seems to be mildly enlarged at 3.9 cm. 4. Trace mitral regurgitation.
[2016-08-09 20:00] VITALS: BP 131/59
--- NOTE | 2016-08-09 21:02 | ECGEPIP ---
Stationary ECG Study [facility] - ED Test Date: 2016-08-08 Pat Name: GARRY MARTINEZ Department: Room: - Gender: M [employer]: stacy : 1975 Requested By: LUCY Doran Order Number: [id number] Reading MD: Roseline Hernandes Measurements Intervals [place] Rate: 75 P: 32 OR: 168 QRS: 25 QRSD: 95 T: 10 QT: 374 QTc: 420 Interpretive Statements SINUS RHYTHM NO PRIOR FOR COMPARISON Electronically Signed On 08-09-2016 21:01:55 EST by Roseline Hernandes
[2016-08-09 23:59] VITALS: BP 123/57
[2016-08-10] MEDS: oxyCODONE 5MG TAB PO SCH ×2 (00:14→06:05)
[2016-08-10 04:00] VITALS: BP 115/59
[2016-08-10 05:43] LABS: INR 1.14
[2016-08-10 05:50] LABS: ALBUMIN 3.2 GM/DL (3.2-5.2); ALBUMIN/GLOBULIN RATIO 0.97 (1.00-1.93); ALKALINE PHOSPHATASE 56 U/L (45-117); ALT/SGPT 30 U/L (12-78); ANION GAP 3 MEQ/L (8-16); AST/SGOT 23 U/L (15-37); BILIRUBIN,TOTAL 0.5 MG/DL (0.2-1.0); BLOOD UREA NITROGEN 10 MG/DL (7-18); CALCIUM LEVEL 8.9 MG/DL (8.5-10.1); CARBON DIOXIDE LEVEL 33 MEQ/L (21-32); CHLORIDE LEVEL 107 MEQ/L (98-107); CREATININE FOR GFR 0.79 MG/DL (0.70-1.30); GLOMERULAR FILTRATION RATE > 60.0 (>60); GLUCOSE, FASTING 92 MG/DL (70-105); MAGNESIUM LEVEL 1.9 MG/DL (1.8-2.4); POTASSIUM SERUM 3.7 MEQ/L (3.5-5.1); SODIUM LEVEL 143 MEQ/L (136-145); TOTAL PROTEIN 6.5 GM/DL (6.4-8.2)
[2016-08-10] MEDS: SLF 3 ML SYR IV SCH (06:06)
[2016-08-10 07:30] VITALS: BP 116/57
[2016-08-10] MEDS ORDERED: XARE15TA PO (08:18)
[2016-08-10] MEDS: PERCOCET 5MG/325MG TAB PO PRN (08:24)
[2016-08-10] MEDS: clonazePAM 1 MG TAB PO SCH (08:24)
[2016-08-10] MEDS: ENOXAPARIN 120 MG/0.8 ML SYR (J1650) SC SCH (08:24)
[2016-08-10] MEDS: GABAPENTIN 300 MG CAP PO SCH (08:24)
--- NOTE | 2016-08-10 13:27 | DS.PDOC ---
Discharge Summary General Date of Admission Aug 08, 2016 at 16:56 Date of Discharge Aug 10, 2016 at 09:55 Discharge Summary PROCEDURES PERFORMED DURING STAY: None. COMPLICATIONS/CHIEF COMPLAINT: Syncope,Atypical Chest Pain,PE ADMISSION DIAGNOSES: 1. Pulmonary embolism 2. History Lyme disease 3. Chest pain atypical for angina DISCHARGE DIAGNOSES: 1. Pulmonary embolism 2. History of Lyme disease 3. R/O ACS HISTORY OF PRESENT ILLNESS: Patient is a 40-year-old male presenting for chest pain atypical for angina. Found to have pulmonary embolism. HOSPITAL COURSE: Patient was admitted for further evaluation of chest pain, and pulmonary embolism. 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 He states has had routine surveillance CT angios, most recently less than one year ago which have been negative. On admission, CT angio noted to have new vs chronic PE. Patient also noted to have chest pain , atypical for angina, ACS ruled out. Patient restarted on Xarelto with likely lifetime requirements. Dopplers of b/l upper lower extremities negative for DVT. Patient came in with a PICC line, has recently completed course of Rocephin for Lyme disease, and PICC line was discontinued. Patient discharged in stable condition with instructions as indicated. DISCHARGE MEDICATIONS: Please see below. ALLERGIES: Please see below. PHYSICAL EXAMINATION ON DISCHARGE: VITAL SIGNS: Please see below. GENERAL: NAD HEENT: NC/AT, EOMI, PERRL NECK: supple CARDIOVASCULAR EXAMINATION: +S1S2, RRR RESPIRATORY EXAMINATION: CTA B/L ABDOMINAL EXAMINATION: soft, NT, +BS EXTREMITIES: no edema, left boot SKIN: no rashes NEUROLOGICAL EXAMINATION: no gross focal deficits PSYCHIATRIC EXAMINATION: AAOx3 LABORATORY DATA: Please see below. IMAGING: CT ANGIO There is a thin membrane like filling defect in the right lower lobe pulmonary artery consistent with a very small acute pulmonary embolus versus subacute or chronic pulmonary embolus. A left-sided PICC line is seen doubling back upon itself and terminating in the left subclavian vein. VTE Prophylaxis ordered?: yes DISCHARGE CONDITION: [Stable]. DISPOSITION: Discharge home ACTIVITY: As tolerated DIET: Regular DISCHARGE PLAN AND INSTRUCTIONS: 1. Follow up PCP in 3-5 days. TIME SPENT ON DISCHARGE: Greater than 30 minutes. Vital Signs/I&Os Vital Signs Date Time Temp Pulse Resp B/P Pulse Ox O2 Delivery O2 Flow Rate FiO2 08/10/16 08:24 20 08/10/16 07:30 95.7 78 116/57 97 Room Air I&O- Last 24 Hours up to 6 AM 08/10/16 06:00 Intake Total 1380 ml Output Total 1600 ml Balance -220 ml Laboratory Data Labs 24H Laboratory Tests 2 08/10/16 04:58: Blood Urea Nitrogen 10, Creatinine 0.79, Sodium Level 143, Potassium Level 3.7, Chloride Level 107, Carbon Dioxide Level 33H, Calcium Level 8.9, Aspartate Amino Transf (AST/SGOT) 23, Alanine Aminotransferase (ALT/SGPT) 30, Alkaline Phosphatase 56, Total Bilirubin 0.5, Total Protein 6.5, Albumin 3.2, Albumin/ Globulin Ratio 0.97L, Anion Gap 3L, Glomerular Filtration Rate > 60.0, Magnesium Level 1.9, Prothromb Time International Ratio 1.14, Prothrombin Time 14.7H CBC/BMP Laboratory Tests 08/10/16 04:58 Calcium Level 8.9, Aspartate Amino Transf (AST/SGOT) 23, Alanine Aminotransferase (ALT/SGPT) 30, Alkaline Phosphatase 56, Total Bilirubin 0.5, Total Protein 6.5, Albumin 3.2 Medications Scheduled (Iron) 325 Mg Tab 325 MG PO DAILY Cholecalciferol (Vitamin D-3) 1,000 Unit Tab 1,000 UNIT PO DAILY Clonazepam (Clonazepam) 1 Mg Tab 1 MG PO QID Furosemide (Furosemide) 40 Mg Tab 40 MG PO DAILY Gabapentin (Gabapentin) 300 Mg Cap 300 MG PO TID Multivitamins *[facility] STOCKED* (Thera M Plus *[facility] STOCKED*) 1 Tab Tab 1 TAB PO DAILY Oxycodone Hcl (Oxycodone HCl) 15 Mg Tab 15 MG PO Q6H Potassium Chloride (Klor-Con M10) 10 Meq Tabcr 10 MEQ PO DAILY Rivaroxaban (Xarelto) 15 Mg Tab 15 MG PO BID Scheduled PRN Oxycodone/Acetaminophen (Oxycodone/Acetaminophen 5-325 mg) 1 Tab Tab 1 TAB PO Q6H PRN PRN BREAKTHROUGH PAIN Allergies Coded Allergies: Latex (Unverified Adverse Reaction, Unknown, SENSITIVITY, 08/08/16) SIMONA HICKS MD Aug 10, 2016 13:27
--- NOTE | 2016-08-10 20:05 | EDDOCDS ---
Physician Documentation [facility] Name: Delbert Suárez Age: 40 yrs Sex: Male : 1975 Arrival Date: 08/08/2016 Time: 12:10 Bed 6 Private MD: NO PRIMARY PHYSICIAN, . Disposition: 08/08/16 16:01 Hospitalization ordered by Alfredo Arthur for Inpatient Admission. Preliminary diagnosis are Pulmonary embolism, Syncope and collapse. - Bed requested for PCU. - Status is Inpatient Admission. [id number] - Condition is Stable. - Problem is new. - Symptoms are unchanged. Historical: - Allergies: No known drug Allergies; - Home Meds: 1. gabapentin 300 mg Oral tab three times a day 2. clonazepam 1 mg Oral TbDL QID 3. oxycodone 15 mg Oral tab 1 tab every 6 hours 4. Percocet 5-325 mg Oral tab 1 tab every 6 hours 5. Lasix 40 mg Oral tab 1 tab once daily 6. potassium chloride 10 mEq Oral cpER 1 cap once daily - PMHx: Lyme Disease; Pseudo Seizures; Fluid retention; left achilles tendon tear; PE; DVT; - PSHx: PICC line x3; right hand; Gastric Bypass; esophageal resection; YOSEF knee scopes; - Social history: Smoking status: Patient states former smoker of tobacco. No barriers to communication noted, The patient speaks fluent [place], Speaks appropriately for age. - Family history: Not pertinent. - : The pt / caregiver states he / she is not on anticoagulants. Home medication list is obtained from the patient, family members. - Exposure Risk Screening:: None identified. Vital Signs: 08/08 12:13 BP 146 / 75; Pulse 102; Resp 20; Temp 98.6(TE); Pulse Ox 100% on R/A; Weight 109.68 kg dem1 / 241.8 lbs (M); 12:46 BP 109 / 60 RA Supine (auto/); Pulse 76; jo3 12:49 BP 121 / 71 RA Sitting (auto/); Pulse 94; jo3 12:51 BP 123 / 66 RA Standing (auto/); Pulse 107; jo3 14:29 BP 110 / 58 (auto/); jo3 14:29 Pulse 80 MON; jo3 14:33 BP 116 / 61 (auto/); jo3 14:33 Pulse 86 MON; Pulse Ox 98% ; jo3 15:03 BP 111 / 57 (auto/); jo3 15:03 Pulse 82 MON; jo3 15:33 BP 106 / 55 (auto/); jo3 15:33 Pulse 82 MON; Pulse Ox 95% ; jo3 16:03 BP 109 / 61 (auto/); jo3 16:03 Pulse 76 MON; Pulse Ox 94% ; jo3 16:30 Pulse 78 MON; Pulse Ox 96% ; jo3 16:33 BP 106 / 61 (auto/); jo3 16:33 Pulse 76 MON; Pulse Ox 97% ; jo3 16:45 Pulse 72 MON; Pulse Ox 97% ; jo3 17:00 Pulse 74 MON; Pulse Ox 97% ; jo3 17:03 BP 112 / 64 (auto/); jo3 17:03 Pulse 72 MON; Resp 16; Temp 98.2(TE); Pulse Ox 97% ; js13 17:15 Pulse 74 MON; Pulse Ox 95% ; jo3 17:30 Pulse 82 MON; Pulse Ox 95% ; jo3 17:45 Pulse 76 MON; Pulse Ox 96% ; jo3 18:00 Pulse 78 MON; Pulse Ox 95% ; jo3 18:15 Pulse 76 MON; Pulse Ox 96% ; jo3 18:42 BP 115 / 65 (auto/); js13 18:42 Pulse 76 MON; Resp 16; Temp 97.9(TE); Pulse Ox 96% ; js13 MDM: 12:22 ECG WITH READING ER PHYS+CARDIAG ordered. EDMS 12:41 Senior Systems Software Engineer/Pulse Ox/q 30 min VS ordered. br1 12:41 IV Saline Lock ordered. br1 12:41 Rhythm Strip to chart ordered. br1 12:41 Undress patient appropriately for examination ordered. br1 12:41 Orthostatic VS ordered. br1 12:42 Basic Metabolic Profile Ordered. EDMS 12:42 CBC with Diff Ordered. EDMS 12:42 Cardiac Injury Profile Ordered. EDMS 12:42 Troponin Ordered. EDMS 12:43 Chest, 2 View (pa\E\lat) Ordered. EDMS 13:14 Ultrasound LE Unilateral R/O DVT Ordered. EDMS 13:14 DVT US Upper Ordered. EDMS 13:23 Financial registration complete. lg 13:34 NS 0.9% 1000 ml IV at 150 mL/hr continuous ordered. br1 13:44 [facility] Payment Agreement was scanned into [employer] and attached to record. lg 14:34 oxyCODONE 15 mg PO once ordered. br1 14:44 CBC with Diff Reviewed. br1 14:44 Basic Metabolic Profile Reviewed. br1 14:44 Cardiac Injury Profile Reviewed. br1 14:44 Troponin Reviewed. br1 14:48 CT Chest Angio R/O PE Ordered. EDMS 15:43 BED REQUEST+ADM ordered. EDMS 15:47 PT/INR Ordered. EDMS 15:47 PTT Ordered. EDMS 17:01 CARDIAC INJURY PROFILE Ordered. EDMS 17:01 TROPONIN Ordered. EDMS 17:02 PHYSICAL THERAPY EVAL & TREAT ordered. EDMS 17:03 Admission / Observation Status ordered. EDMS 17:03 ECHOCARD,DOPPLER/COLOR FLOW ordered. EDMS 17:03 2 GRAM SODIUM DIET ordered. EDMS 08/09 10:51 T-Sheet-- Draft Copy was scanned into [employer] and attached to record. gb 10:51 ECG/EKG was scanned into [employer] and attached to record. gb Administered Medications: 08/08 14:20 Drug: NS 0.9% 1000 ml [sodium chloride 0.9 % intravenous solution] Route: IV; Rate: 150 jo3 mL/hr; Site: right antecubital; 18:53 Follow up: IV Status: Completed infusion jo3 14:38 Drug: oxyCODONE 15 mg [oxycodone 5 mg tablet (3 tabs)] Route: PO; jo3 Signatures: Dispatcher [employer] EDMS Mercedes Curry, Reg Reg gb Myra Etienne, Reg Reg lg Ashtyn Vang,DOV RN jo3 Osmar Lr MD MD br1 Ashtyn Briscoe,DOV RN js13 Adriana Alvarado RN RN sls2 The chart was reviewed and I authenticate all verbal orders and agree with the evaluation and treatment provided.Attachments: 13:44 [facility] Payment Agreement lg 08/09 10:51 T-Sheet-- Draft Copy gb 10:51 ECG/EKG gb Chart Complete MTDD
--- NOTE | 2016-08-10 20:06 | EDDOCDS ---
Physician Documentation [facility] Name: Dlebert Suárez Age: 40 yrs Sex: Male : 1975 Arrival Date: 08/08/2016 Time: 12:10 Bed 6 Private MD: NO PRIMARY PHYSICIAN, . Disposition: 08/08/16 16:01 Hospitalization ordered by Alfredo Arthur for Inpatient Admission. Preliminary diagnosis are Pulmonary embolism, Syncope and collapse. - Bed requested for PCU. - Status is Inpatient Admission. [id number] - Condition is Stable. - Problem is new. - Symptoms are unchanged. Historical: - Allergies: No known drug Allergies; - Home Meds: 1. gabapentin 300 mg Oral tab three times a day 2. clonazepam 1 mg Oral TbDL QID 3. oxycodone 15 mg Oral tab 1 tab every 6 hours 4. Percocet 5-325 mg Oral tab 1 tab every 6 hours 5. Lasix 40 mg Oral tab 1 tab once daily 6. potassium chloride 10 mEq Oral cpER 1 cap once daily - PMHx: Lyme Disease; Pseudo Seizures; Fluid retention; left achilles tendon tear; PE; DVT; - PSHx: PICC line x3; right hand; Gastric Bypass; esophageal resection; YOSEF knee scopes; - Social history: Smoking status: Patient states former smoker of tobacco. No barriers to communication noted, The patient speaks fluent Thai, Speaks appropriately for age. - Family history: Not pertinent. - : The pt / caregiver states he / she is not on anticoagulants. Home medication list is obtained from the patient, family members. - Exposure Risk Screening:: None identified. Vital Signs: 08/08 12:13 BP 146 / 75; Pulse 102; Resp 20; Temp 98.6(TE); Pulse Ox 100% on R/A; Weight 109.68 kg dem1 / 241.8 lbs (M); 12:46 BP 109 / 60 RA Supine (auto/); Pulse 76; jo3 12:49 BP 121 / 71 RA Sitting (auto/); Pulse 94; jo3 12:51 BP 123 / 66 RA Standing (auto/); Pulse 107; jo3 14:29 BP 110 / 58 (auto/); jo3 14:29 Pulse 80 MON; jo3 14:33 BP 116 / 61 (auto/); jo3 14:33 Pulse 86 MON; Pulse Ox 98% ; jo3 15:03 BP 111 / 57 (auto/); jo3 15:03 Pulse 82 MON; jo3 15:33 BP 106 / 55 (auto/); jo3 15:33 Pulse 82 MON; Pulse Ox 95% ; jo3 16:03 BP 109 / 61 (auto/); jo3 16:03 Pulse 76 MON; Pulse Ox 94% ; jo3 16:30 Pulse 78 MON; Pulse Ox 96% ; jo3 16:33 BP 106 / 61 (auto/); jo3 16:33 Pulse 76 MON; Pulse Ox 97% ; jo3 16:45 Pulse 72 MON; Pulse Ox 97% ; jo3 17:00 Pulse 74 MON; Pulse Ox 97% ; jo3 17:03 BP 112 / 64 (auto/); jo3 17:03 Pulse 72 MON; Resp 16; Temp 98.2(TE); Pulse Ox 97% ; js13 17:15 Pulse 74 MON; Pulse Ox 95% ; jo3 17:30 Pulse 82 MON; Pulse Ox 95% ; jo3 17:45 Pulse 76 MON; Pulse Ox 96% ; jo3 18:00 Pulse 78 MON; Pulse Ox 95% ; jo3 18:15 Pulse 76 MON; Pulse Ox 96% ; jo3 18:42 BP 115 / 65 (auto/); js13 18:42 Pulse 76 MON; Resp 16; Temp 97.9(TE); Pulse Ox 96% ; js13 MDM: 12:22 ECG WITH READING ER PHYS+CARDIAG ordered. EDMS 12:41 Government Operations Consultant/Pulse Ox/q 30 min VS ordered. br1 12:41 IV Saline Lock ordered. br1 12:41 Rhythm Strip to chart ordered. br1 12:41 Undress patient appropriately for examination ordered. br1 12:41 Orthostatic VS ordered. br1 12:42 Basic Metabolic Profile Ordered. EDMS 12:42 CBC with Diff Ordered. EDMS 12:42 Cardiac Injury Profile Ordered. EDMS 12:42 Troponin Ordered. EDMS 12:43 Chest, 2 View (pa\E\lat) Ordered. EDMS 13:14 Ultrasound LE Unilateral R/O DVT Ordered. EDMS 13:14 DVT US Upper Ordered. EDMS 13:23 Financial registration complete. lg 13:34 NS 0.9% 1000 ml IV at 150 mL/hr continuous ordered. br1 13:44 [facility] [place] Agreement was scanned into [employer] and attached to record. lg 14:34 oxyCODONE 15 mg PO once ordered. br1 14:44 CBC with Diff Reviewed. br1 14:44 Basic Metabolic Profile Reviewed. br1 14:44 Cardiac Injury Profile Reviewed. br1 14:44 Troponin Reviewed. br1 14:48 CT Chest Angio R/O PE Ordered. EDMS 15:43 BED REQUEST+ADM ordered. EDMS 15:47 PT/INR Ordered. EDMS 15:47 PTT Ordered. EDMS 17:01 CARDIAC INJURY PROFILE Ordered. EDMS 17:01 TROPONIN Ordered. EDMS 17:02 PHYSICAL THERAPY EVAL & TREAT ordered. EDMS 17:03 Admission / Observation Status ordered. EDMS 17:03 ECHOCARD,DOPPLER/COLOR FLOW ordered. EDMS 17:03 2 GRAM SODIUM DIET ordered. EDMS 08/09 10:51 T-Sheet-- Draft Copy was scanned into [employer] and attached to record. gb 10:51 ECG/EKG was scanned into [employer] and attached to record. gb Administered Medications: 08/08 14:20 Drug: NS 0.9% 1000 ml [sodium chloride 0.9 % intravenous solution] Route: IV; Rate: 150 jo3 mL/hr; Site: right antecubital; 18:53 Follow up: IV Status: Completed infusion jo3 14:38 Drug: oxyCODONE 15 mg [oxycodone 5 mg tablet (3 tabs)] Route: PO; jo3 Signatures: Dispatcher [employer] EDMS Mercedes Curry, Reg Reg gb Myra Etienne, Reg Reg lg Ashtyn Vang,DOV RN jo3 Osmar Lr MD MD br1 Ashtyn Briscoe,DOV RN js13 Adriana Alvarado RN RN sls2 The chart was reviewed and I authenticate all verbal orders and agree with the evaluation and treatment provided.Attachments: 13:44 [facility] [place] Agreement lg 08/09 10:51 T-Sheet-- Draft Copy gb 10:51 ECG/EKG gb Chart Complete MTDD
--- NOTE | 2016-08-10 20:06 | EDDOCDS ---
Nurse's Notes [facility] Name: Delbert Suárez Age: 40 yrs Sex: Male : 1975 Arrival Date: 08/08/2016 Time: 12:10 Bed 6 Private MD: NO PRIMARY PHYSICIAN, . Diagnosis: Pulmonary embolism;Syncope and collapse Presentation: 08/08 12:15 Red Flag criteria, patient assessed and taken directly to a bed. dsf 12:21 Presenting complaint: states: Pt has had ongoing difficulties r/t Lyme disease. jo3 Has a PICC line placed for Rocephin infusions. Completed Rocephin treatments Friday. Been unable to get ahold of Dr Reason to plan to have PICC removed. Has had nothing through PICC line since Friday and left hand is hurting and has numb feeling. Has history of blood clots. En route to hospital, pt had several syncopal episodes and complained of a "flutter" in chest. Adult Sepsis Screening: Patient has new or worsening altered mentation (1 point). Patient's respiratory rate is less than 22. Systolic blood pressure is greater than 100. Patient has a qSOFA score of 0- Negative Sepsis Screen. Suicide/Homicide risk assessment- the patient denies having any suicidal and/or homicidal ideations and does not present with any other emotional, behavioral or mental health complaints. Status: Patient is not a customer service representative or dependent. Transition of care: patient was not received from another setting of care. 12:21 Acuity: LUISITO Level 3 jo3 12:21 Method Of Arrival: Walkin/Carried/Asstd jo3 Triage Assessment: 12:42 General: Appears. General: See nursing assessment . HIV screening NA for this visit jo3 Offered previously. Neurological:. Historical: - Allergies: No known drug Allergies; - Home Meds: 1. gabapentin 300 mg Oral tab three times a day 2. clonazepam 1 mg Oral TbDL QID 3. oxycodone 15 mg Oral tab 1 tab every 6 hours 4. Percocet 5-325 mg Oral tab 1 tab every 6 hours 5. Lasix 40 mg Oral tab 1 tab once daily 6. potassium chloride 10 mEq Oral cpER 1 cap once daily - PMHx: Lyme Disease; Pseudo Seizures; Fluid retention; left achilles tendon tear; PE; DVT; - PSHx: PICC line x3; right hand; Gastric Bypass; esophageal resection; YOSEF knee scopes; - Social history: Smoking status: Patient states former smoker of tobacco. No barriers to communication noted, The patient speaks fluent Sinhala, Speaks appropriately for age. - Family history: Not pertinent. - : The pt / caregiver states he / she is not on anticoagulants. Home medication list is obtained from the patient, family members. - Exposure Risk Screening:: None identified. Screenin:44 Screening information is obtained from the patient, family members. Screening jo3 information is obtained from. Fall risk: At risk due to apparent cognitive impairment. Assistance ADL's: requires no assistance with activities of daily living. Abuse/DV Screen: The patient / caregiver reports he/she is:. Nutritional screening: No deficits noted. Advance Directives: There is no active DNR order. home support is adequate. Assessment: 12:42 General: Appears. General: Appears in no apparent distress, comfortable, unkempt, jo3 Behavior is cooperative. General: Appears well nourished, Behavior is. Neurological: Level of Consciousness is awake, alert, Oriented to person, place, time. Cardiovascular: PICC line to left upper extremity . Rhythm is sinus rhythm No ectopy. Respiratory: Airway is patent Respiratory effort is even, unlabored. Derm: Skin is pink, warm & dry. 13:08 General: Appears in no apparent distress, comfortable, unkempt, well nourished, jo3 Behavior is appropriate for age, cooperative. Neurological: Level of Consciousness is awake, alert, Oriented to person, place, time, Stock Room Manager are equal bilaterally. Respiratory: Airway is patent Respiratory effort is even, unlabored. Derm: Skin is pink, warm & dry. Musculoskeletal: Left foot in immobilizer boot to mid calf. 14:38 General: Appears uncomfortable, Behavior is appropriate for age, cooperative, pleasant. jo3 General: Pt reports it is past time for home dose of pain medication. Discussed with Dr Lr and orders received. Will monitor for effectiveness . Neurological: Level of Consciousness is awake, alert, Oriented to person, place, time. 15:32 Reassessment: Patient appears in no apparent distress at this time. Patient states jo3 feeling better. Patient states symptoms have improved. Pt reports that pain is improved following home dose of Oxycodone. returned from CT scan. Tolerated well. Awaiting results for disposition at this time. Aware of plan of care . 16:35 General: Appears in no apparent distress, Behavior is appropriate for age, cooperative, jo3 pleasant. General: Awaiting admission at this time. Aware of plan of care . Neurological: No deficits noted. Level of Consciousness is awake, alert, Oriented to person, place, time. Respiratory: Airway is patent Respiratory effort is even, unlabored. Derm: Skin is pink, warm & dry. 17:40 Reassessment: Patient appears in no apparent distress at this time. Resting on jo3 stretcher with significant other at bedside. Awaiting admission to PCU at this time. Aware of plan of care . Neurological: No deficits noted. Level of Consciousness is awake, alert, Oriented to person, place, time. Respiratory: No deficits noted. Airway is patent Respiratory effort is even, unlabored. 18:39 General: Appears in no apparent distress, comfortable, Behavior is appropriate for age, jo3 cooperative, pleasant. Neurological: Level of Consciousness is awake, alert, Oriented to person, place, time. Respiratory: Airway is patent Respiratory effort is even, unlabored. Derm: Skin is pink, warm & dry. Vital Signs: 12:13 BP 146 / 75; Pulse 102; Resp 20; Temp 98.6(TE); Pulse Ox 100% on R/A; Weight 109.68 kg dem1 (M); 12:46 BP 109 / 60 RA Supine (auto/); Pulse 76; jo3 12:49 BP 121 / 71 RA Sitting (auto/); Pulse 94; jo3 12:51 BP 123 / 66 RA Standing (auto/); Pulse 107; jo3 14:29 BP 110 / 58 (auto/); jo3 14:29 Pulse 80 MON; jo3 14:33 BP 116 / 61 (auto/); jo3 14:33 Pulse 86 MON; Pulse Ox 98% ; jo3 15:03 BP 111 / 57 (auto/); jo3 15:03 Pulse 82 MON; jo3 15:33 BP 106 / 55 (auto/); jo3 15:33 Pulse 82 MON; Pulse Ox 95% ; jo3 16:03 BP 109 / 61 (auto/); jo3 16:03 Pulse 76 MON; Pulse Ox 94% ; jo3 16:30 Pulse 78 MON; Pulse Ox 96% ; jo3 16:33 BP 106 / 61 (auto/); jo3 16:33 Pulse 76 MON; Pulse Ox 97% ; jo3 16:45 Pulse 72 MON; Pulse Ox 97% ; jo3 17:00 Pulse 74 MON; Pulse Ox 97% ; jo3 17:03 BP 112 / 64 (auto/); jo3 17:03 Pulse 72 MON; Resp 16; Temp 98.2(TE); Pulse Ox 97% ; js13 17:15 Pulse 74 MON; Pulse Ox 95% ; jo3 17:30 Pulse 82 MON; Pulse Ox 95% ; jo3 17:45 Pulse 76 MON; Pulse Ox 96% ; jo3 18:00 Pulse 78 MON; Pulse Ox 95% ; jo3 18:15 Pulse 76 MON; Pulse Ox 96% ; jo3 18:42 BP 115 / 65 (auto/); js13 18:42 Pulse 76 MON; Resp 16; Temp 97.9(TE); Pulse Ox 96% ; js13 Vitals: 12:13 Log In Time: August 08, 2016 at 12:11. elp 12:13 RN notified that patient meets Red Flag criteria. elp ED Course: 12:12 Patient visited by Liliane Lopez PCA. elp 12:12 NO PRIMARY PHYSICIAN, . is Private Physician. elp 12:12 Patient moved to Waiting elp 12:13 Patient visited by Liliane Lopez PCA. elp 12:15 Patient moved to 6 elp 12:26 EKG done. (by ED staff). Reviewed by Osmar Lr MD. dem1 12:27 Triage Initiated jo3 12:28 Patient visited by Jessica Whitley. dem1 12:28 Pt greeted and oriented to ED. Patient advised of names of staff involved in care, dem1 location of call loredo, wait times and NPO status. Patient has correct armband on for positive identification. Placed in gown. Bed in low position. Call light in reach. Side rails up X2. satellite project site monitor on. Pulse ox on. NIBP on. 12:31 Patient visited by Jessica Whitley. dem1 12:31 Seizure precautions initiated. dem1 12:33 Patient visited by Ashtyn Vang,DOV. jo3 12:44 The patient / caregiver is instructed regarding the plan of care and ED course. jo3 12:59 Osmar Lr MD is Attending Physician. br1 13:08 Basic Metabolic Profile Sent. jo3 13:08 CBC with Diff Sent. jo3 13:08 Cardiac Injury Profile Sent. jo3 13:08 Troponin Sent. jo3 13:10 Flushed left PICC line. jo3 13:12 Patient visited by Osmar Lr MD. br1 13:14 Patient visited by Ashtyn Vang,DOV. jo3 13:44 [facility] Payment Agreement was scanned into [employer] and attached to record. lg 14:18 Patient visited by Angelita Preciado PCA. ct3 14:55 Ultrasound LE Unilateral R/O DVT Returned. EDMS 14:55 DVT US Upper Returned. EDMS 14:55 Chest, 2 View (pa\\E\\lat) Returned. EDMS 15:35 Patient visited by Angelita Preciado PCA. ct3 15:38 Patient visited by Ashtyn Vang,DOV. jo3 16:01 Alfredo Arthur is Hospitalizing Provider. br1 16:36 CT Chest Angio R/O PE Returned. EDMS 17:15 Patient visited by Ashtyn Vang,DOV. jo3 18:17 No procedures done that require assistance. jo3 18:18 Patient visited by Ashtyn Vang,DOV. jo3 08/09 10:51 T-Sheet-- Draft Copy was scanned into [employer] and attached to record. gb 10:51 ECG/EKG was scanned into [employer] and attached to record. gb Administered Medications: 08/08 14:20 Drug: NS 0.9% 1000 ml [sodium chloride 0.9 % intravenous solution] Route: IV; Rate: 150 jo3 mL/hr; Site: right antecubital; 18:53 Follow up: IV Status: Completed infusion jo3 14:38 Drug: oxyCODONE 15 mg [oxycodone 5 mg tablet (3 tabs)] Route: PO; jo3 Order Results: Lab Order: Basic Metabolic Profile; SPEC'M 08/08/16 13:06 Test: GLUCOSE, FASTING; Value: 84; Range: 70-105; Units: MG/DL; Status: F Test: BLOOD UREA NITROGEN; Value: 12; Range: 7-18; Units: MG/DL; Status: F Test: CREATININE FOR GFR; Value: 0.82; Range: 0.70-1.30; Units: MG/DL; Status: F Test: GLOMERULAR FILTRATION RATE; Value: > 60.0; Range: >60; Status: F Test: SODIUM LEVEL; Value: 143; Range: 136-145; Units: MEQ/L; Status: F Test: POTASSIUM SERUM; Value: 3.7; Range: 3.5-5.1; Units: MEQ/L; Status: F Test: CHLORIDE LEVEL; Value: 104; Range: 98-107; Units: MEQ/L; Status: F Test: CARBON DIOXIDE LEVEL; Value: 31; Range: 21-32; Units: MEQ/L; Status: F Test: ANION GAP; Value: 8; Range: 8-16; Units: MEQ/L; Status: F Test: CALCIUM LEVEL; Value: 9.1; Range: 8.5-10.1; Units: MG/DL; Status: F Test Note: ; Units are mL/min/1.73 m2 Chronic Kidney Disease Staging per NKF: Stage I & II GFR >=60 Normal to Mildly Decreased Stage III GFR 30-59 Moderately Decreased Stage IV GFR 15-29 Severely Decreased Stage V GFR <15 Very Little GFR Left ESRD GFR <15 on PUMP INSTALLER Lab Order: CBC with Diff; SPEC'M 08/08/16 13:06 Test: WHITE BLOOD COUNT; Value: 9.3; Range: 4.0-10.0; Units: K/mm3; Status: F Test: RED BLOOD COUNT; Value: 5.11; Range: 4.30-6.10; Units: M/mm3; Status: F Test: HEMOGLOBIN; Value: 14.5; Range: 14.0-18.0; Units: g/dl; Status: F Test: HEMATOCRIT; Value: 44.4; Range: 42.0-52.0; Units: %; Status: F Test: MEAN CORPUSCULAR VOLUME; Value: 87.0; Range: 80.0-96.0; Units: fl; Status: F Test: MEAN CORPUSCULAR HEMOGLOBIN; Value: 28.5; Range: 27.0-33.0; Units: pg; Status: F Test: MEAN CORPUSCULAR HGB CONC; Value: 32.7; Range: 32.0-36.5; Units: g/dl; Status: F Test: RED CELL DISTRIBUTION WIDTH; Value: 13.2; Range: 11.5-14.5; Units: %; Status: F Test: PLATELET COUNT, AUTOMATED; Value: 347; Range: 150-450; Units: k/mm3; Status: F Test: NEUTROPHILS %; Value: 70.5; Range: 36.0-66.0; Abnormal: Above high normal; Units: %; Status: F Test: LYMPH %; Value: 22.1; Range: 24.0-44.0; Abnormal: Below low normal; Units: %; Status: F Test: MONO %; Value: 3.7; Range: 0.0-5.0; Units: %; Status: F Test: EOS %; Value: 1.5; Range: 0.0-3.0; Units: %; Status: F Test: BASO %; Value: 0.6; Range: 0.0-1.0; Units: %; Status: F Test: LARGE UNSTAINED CELL %; Value: 1.6; Range: 0.0-4.0; Units: %; Status: F Test: NEUTROPHILS #; Value: 6.6; Range: 1.8-7.7; Units: K/mm3; Status: F Test: LYMPH #; Value: 2.1; Range: 1.5-4.5; Units: K/mm3; Status: F Test: MONO #; Value: 0.4; Range: 0.0-0.8; Units: K/mm3; Status: F Test: EOS #; Value: 0.1; Range: 0.0-0.50; Units: K/mm3; Status: F Test: BASO #; Value: 0.0; Range: 0.0-0.2; Units: K/mm3; Status: F Test: LARGE UNSTAINED CELL #; Value: 0.2; Range: 0.0-0.4; Units: K/mm3; Status: F Lab Order: Cardiac Injury Profile; SPEC'M 08/08/16 13:06 Test: CPK CREATINE PHOSPHOKINASE; Value: 79; Range: 39-308; Units: U/L; Status: F Test: CK-MB VALUE MASS; Value: 1.0; Range: 0.0-3.6; Units: NG/ML; Status: F Test: MB/CK RELATIVE INDEX; Value: 1.26; Range: < OR =4; Status: F Test Note: ; DIAGNOSIS CRITERIA MMB ng/ml Relative Index (RI) NON-AMI < or = 5 N/A LOUIE ZONE > 5 < or = 4 AMI > 5 > 4 Lab Order: Troponin; [facility] 08/08/16 13:06 Test: TROPONIN I; Value: < 0.02; Range: < 0.10; Units: NG/ML; Status: F Test Note: ; Troponin I Reference Interval for Prezi LOCI: 99th Percentile= 0.00-0.045 ng/ml Risk Stratification: <= 0.10 ng/ml Decreased Risk for Adverse Clinical Events. 0.10-1.50 ng/ml Increased Risk for Adverse Clinical Events. Evaluation of additional criterion and/or repeat testing in 2-6 hours is suggested to rule out myocardial damage. >= 1.50 ng/ml Indicative of Myocardial Injury. Lab Order: PT/INR; [facility] 08/08/16 13:06 Test: PROTHROMBIN TIME; Value: 13.8; Range: 12.3-14.5; Units: SECONDS; Status: F Test: INR; Value: 1.05; Status: F Test Note: ; THERAPUTIC HUMAN INR VALUES INDICATIONS NORMAL RANGES PROPHYLAXIS/TREATMENT OF: VENOUS THROMBOSIS 2.0-3.0 PULMONARY EMBOLISM 2.0-3.0 PREVENTION OF SYSTEMIC EMBOLISM FROM: TISSUE HEART VALVES 2.0-3.0 ACUTE MYOCARDIAL INFARCTION 2.0-3.0 VALVULAR HEART DISEASE 2.0-3.0 ATRIAL FIBRILLATION 2.0-3.0 MECHANICAL VALVES(HIGH RISK) 2.5-3.5 RECURRENT MYOCARDIAL INFARCTION 2.5-3.5 Lab Order: PTT; [facility] 08/08/16 13:06 Test: PARTIAL THROMBOPLASTIN TIME; Value: 30.1; Range: 26.6-37.1; Units: SECONDS; Status: F Lab Order: CARDIAC INJURY PROFILE; [facility] 08/08/16 17:20 Test: CPK CREATINE PHOSPHOKINASE; Value: 65; Range: 39-308; Units: U/L; Status: F Test: CK-MB VALUE MASS; Value: 1.1; Range: 0.0-3.6; Units: NG/ML; Status: F Test: MB/CK RELATIVE INDEX; Value: 1.69; Range: < OR =4; Status: F Test Note: ; DIAGNOSIS CRITERIA MMB ng/ml Relative Index (RI) NON-AMI < or = 5 N/A LOUIE ZONE > 5 < or = 4 AMI > 5 > 4 Lab Order: TROPONIN; SPEC'[facility] 08/08/16 17:20 Test: TROPONIN I; Value: < 0.02; Range: < 0.10; Units: NG/ML; Status: F Test Note: ; Troponin I Reference Interval for Prezi LOCI: 99th Percentile= 0.00-0.045 ng/ml Risk Stratification: <= 0.10 ng/ml Decreased Risk for Adverse Clinical Events. 0.10-1.50 ng/ml Increased Risk for Adverse Clinical Events. Evaluation of additional criterion and/or repeat testing in 2-6 hours is suggested to rule out myocardial damage. >= 1.50 ng/ml Indicative of Myocardial Injury. Radiology Order: Chest, 2 View (pa\\E\\lat) Test: Chest, 2 View (pa\\E\\lat) REASON FOR EXAMINATION: Syncope; Chest x-ray: Two views.; ; History: Syncope. .; ; Comparison study: No comparison study .; ; Findings: The lungs are well inflated and free of infiltrate. The pleural; angles are sharp. The heart size is normal. Pulmonary vasculature is not; increased. No significant bony abnormality is seen.; ; Impression:; ; Negative chest x-ray.; ; ; Signed by; Ellis Fallon MD 08/08/2016 02:20 P; Radiology Order: Ultrasound LE Unilateral R/O DVT Test: Ultrasound LE Unilateral R/O DVT REASON FOR EXAMINATION: Deformity/Swelling; Left lower extremity deep vein duplex ultrasound:; ; The deep veins demonstrate normal compression, normal Doppler color flow and; normal Doppler waveforms with respiration and augmentation at multiple levels; from the popliteal vein to the common femoral vein.; ; Impression:; ; There is no deep vein thrombus.; ; A normal-sized left inguinal node is incidentally identified.; ; ; Signed by; Jan Serrato MD 08/08/2016 02:09 P; Radiology Order: DVT US Upper Test: DVT US Upper REASON FOR EXAMINATION: Deformity/Swelling; Left upper extremity duplex venous ultrasound:; ; History: Intravenous medication for Lyme disease PICC line inserted. Deformity; and swelling.; ; Findings: The left internal jugular, left subclavian, left brachial, left; basilic, left axillary, and left cephalic veins are anechoic and compressible; where they can be sonographically visualized. There is a bandage at the PICC; line insertion in the distal arm. There is no evidence of venous thrombosis.; Color flow imaging is homogeneous. Spectral Doppler interrogation is; unremarkable.; ; Impression:; ; No evidence of left upper extremity venous thrombosis. The PICC line is seen in; the basilic vein without visible thrombus.; ; ; Signed by; Ellis Fallon MD 08/08/2016 04:33 P; Radiology Order: CT Chest Angio R/O PE Test: CT Chest Angio R/O PE REASON FOR EXAMINATION: Chest Pain; CT pulmonary angiogram: With IV contrast.; ; History: Chest pain.; ; Comparison studies: Today's chest x-ray.; ; Contrast dose: 75 cc's of Isovue 370 are administered intravenously.; ; CT technique: Helical scanning is acquired and overlapping 1.5 mm and contiguous; 3 mm axial images are reformatted. In addition, a 3-D work station is deployed; to generate thick slab maximum intensity projection images in sagittal and; coronal imaging projections.; ; CT pulmonary angiographic findings: There is good opacification of the pulmonary; arterial tree. There is a thin weblike or membrane like filling defect in the; right lower lobe pulmonary artery branch which extends into the segmental; pulmonary artery branch posterior basal segment. This weblike defect is slightly; eccentric. It may be subacute or old. It cannot be visualized on the maximal; intensity projection images probably due to volume averaging.; ; The thoracic aorta has a normal appearance.; ; There is no evidence of pleural or pericardial effusion. No mass or infiltrate; is seen in the lung belle. A left-sided PICC line is seen looping back upon; itself and terminating in the left subclavian vein. This is a change in its; position from when it was inserted April 11, 2016. Surgical clips are noted in; the upper abdomen post gastric bypass. The upper abdominal structures are; otherwise unremarkable. No other pulmonary arterial filling defect is; appreciated.; ; Impression:; ; There is a thin membrane like filling defect in the right lower lobe pulmonary; artery consistent with a very small acute pulmonary embolus versus subacute or; chronic pulmonary embolus. A left-sided PICC line is seen doubling back upon; itself and terminating in the left subclavian vein.; ; ; Signed by; Ellis Fallon MD 08/08/2016 04:34 P; Outcome: 16:01 Decision to Hospitalize by Provider. br1 18:39 Discharge Assessment: Patient awake, alert and oriented x 3. No cognitive and/or jo3 functional deficits noted. Patient verbalized understanding of disposition instructions. patient administered narcotics - yes. Patient was admitted to the hospital or transferred to another facility. The following High Risk Discharge criteria are identified: None. Admitted to PCU accompanied by nurse, accompanied by tech, family with patient, via stretcher, on monitor, with chart. Condition: stable. CT Study completed. Ultrasound Study completed. Admission hand-off: Report Faxed Fax receipt verified by Tracy Rodriguez RN. Stated ready to receive pt at 1850. Property :Personal belongings accompany Pt. 19:05 Patient left the ED. js13 Signatures: Dispatcher [employer] EDMS Mercedes Curry, Reg Reg gb Myra Etienne, Reg Reg lg Ashtyn Vang,RN RN [id number] Osmar Lr MD MD br1 Angelita Preciado, HONEY BLENDER HONEY BLENDER ct3 Tanvi Ignacio,RN RN Jessica Virgen dem1 Ashtyn Briscoe,DOV RN js13 Liliane Lopez, HONEY BLENDER HONEY BLENDER elp Corrections: (The following items were deleted from the chart) 12:27 12:13 BP 146 / 75; Pulse 102bpm; Resp 20bpm; Pulse Ox 100% RA; elp dem1 12:44 12:42 Cardiovascular: Rhythm is sinus rhythm No ectopy. jo3 jo3 19:04 17:03 Pulse 72bpm; MonitorResp 16bpm; Pulse Ox 97%; Temp 68.2F Temporal; jo3 js13 Chart Complete MTDD
== END 2016-08-10 09:55 | disposition home or self-care (01) | DRG 176 ==
LOC: M ED 12:10 → M ED INP 16:56 → M PCU 18:59
PROVIDERS: ADMIT Internal Medicine; ATTEND Internal Medicine
DX: I26.99 Other pulmonary embolism without acute cor pulmonale (principal); A69.20 Lyme disease, unspecified; G25.0 Essential tremor; G89.29 Other chronic pain; Z86.711 Personal history of pulmonary embolism; Z91.040 Latex allergy status; Z79.899 Other long term (current) drug therapy; Z98.84 Bariatric surgery status; Z95.828 Presence of other vascular implants and grafts; Z87.891 Personal history of nicotine dependence